=== PATIENT | male | born 1970 | race Caucasian/White ===

== ENCOUNTER 2021-03-22 21:44 | Inpatient (IN) | payer OTHER ==
[~2021-03-22] VITALS: Ht 175.3 cm; Wt 160.7 kg
[2021-03-22 23:12] LABS: BASOPHIL 0.4 % (0-2); EOSINOPHIL 0 % (0-5); HCT 47.4 % (42.0-52.0); HGB 15.5 g/dl (13.2-18.0); LYMPHOCYTE 9.8 % (15-48); MCH 27.6 pg (25.0-31.0); MCHC 32.7 g/dL (32.0-36.0); MCV 84.3 fL (78.0-100.0); MONOCYTE 7.5 % (0-12); MPV 11.6 fL (6.0-9.5); NEUTROPHIL 81.5 % (41-80); NRBC 0; PLT 109 K/uL (150-400); RBC 5.62 M/uL (4.70-6.00); RDW 13.9 % (11.5-14.0); WBC 5.2 K/uL (4.0-10.5)
[2021-03-22 23:34] LABS: ALBUMIN 2.8 g/dL (3.4-5.0); BILIRUBIN - TOTAL 0.3 mg/dL (0.2-1.0); BUN/CREAT RATIO (CALC) 22.1 RATIO; CREATININE 1.22 mg/dL (0.67-1.17); GLOBULIN (CALCULATION) 4.2 g/dL; POTASSIUM 4.4 mmol/L (3.5-5.1)
[2021-03-23 00:59] LABS: BILIRUBIN NEGATIVE (NEGATIVE); BLOOD 2+ Ery/uL (NEGATIVE); CLARITY CLEAR (CLEAR); COLOR YELLOW (YELLOW); GLUCOSE (U) 3+ mg/dL (NORMAL); LEUKOCYTES NEGATIVE Leu/uL (NEGATIVE); NITRITE NEGATIVE (NEGATIVE); PROTEIN 2+ mg/dL (NEGATIVE); SPECIFIC GRAVITY >=1.030 (1.001-1.030); UROBILINOGEN 0.2 mg/dL (0.2-1.0); pH 5.5 (5.0-9.0)
[2021-03-23 01:07] LABS: BACTERIA 1+
[2021-03-23 01:08] LABS: EPITHELIAL CASTS TRACE; MUCOUS TRACE
[2021-03-23] MEDS ORDERED: GLYBURIDE 5MG TA5 MG PO (03:49)
[2021-03-23] MEDS ORDERED: JARDIANCE10 MG PO (03:50)
[2021-03-23] MEDS ORDERED: JANUVIA 100MG100 MG PO (03:50)
[2021-03-23] MEDS ORDERED: LISINOPRIL2.5 MG PO (03:51)
[2021-03-23] MEDS ORDERED: LASIX20 MG PO (03:54)
[2021-03-23] MEDS ORDERED: FARXIGA5 MG PO (03:54)
[2021-03-23] MEDS ORDERED: STEGLATRO15 MG PO (03:55)
[2021-03-23 07:25] LABS: BASOPHIL 0.6 % (0-2); EOSINOPHIL 0 % (0-5); HCT 43.6 % (42.0-52.0); LYMPHOCYTE 8.4 % (15-48); MCH 27.4 pg (25.0-31.0); MCHC 32.1 g/dL (32.0-36.0); MCV 85.3 fL (78.0-100.0); MONOCYTE 5.9 % (0-12); MPV 12.4 fL (6.0-9.5); NEUTROPHIL 83.8 % (41-80); NRBC 0; RBC 5.11 M/uL (4.70-6.00); RDW 13.7 % (11.5-14.0); WBC 3.2 K/uL (4.0-10.5)
[2021-03-23 07:30] LABS: BUN/CREAT RATIO (CALC) 25.7 RATIO; CREATININE 1.09 mg/dL (0.67-1.17); POTASSIUM 4.9 mmol/L (3.5-5.1)
[2021-03-23 07:57] LABS: PLT 87 K/uL (150-400)
[2021-03-24 06:34] LABS: BASOPHIL 0.3 % (0-2); EOSINOPHIL 0 % (0-5); HCT 43.5 % (42.0-52.0); LYMPHOCYTE 9.7 % (15-48); MCHC 32.2 g/dL (32.0-36.0); MCV 83.8 fL (78.0-100.0); MPV 11.9 fL (6.0-9.5); NEUTROPHIL 78.5 % (41-80); NRBC 0; PLT 102 K/uL (150-400); RBC 5.19 M/uL (4.70-6.00); RDW 13.8 % (11.5-14.0); WBC 3.3 K/uL (4.0-10.5)
[2021-03-24 07:04] LABS: ALBUMIN 2.4 g/dL (3.4-5.0); BILIRUBIN - TOTAL 0.2 mg/dL (0.2-1.0); CREATININE 0.97 mg/dL (0.67-1.17); GLOBULIN (CALCULATION) 3.6 g/dL; POTASSIUM 4.8 mmol/L (3.5-5.1)
[2021-03-25 06:42] LABS: BASOPHIL 0.2 % (0-2); EOSINOPHIL 0 % (0-5); HCT 44.2 % (42.0-52.0); HGB 14.2 g/dl (13.2-18.0); LYMPHOCYTE 7.1 % (15-48); MCH 27.2 pg (25.0-31.0); MCHC 32.1 g/dL (32.0-36.0); MCV 84.7 fL (78.0-100.0); MONOCYTE 10.8 % (0-12); NRBC 0; PLT 132 K/uL (150-400); RBC 5.22 M/uL (4.70-6.00); WBC 5.4 K/uL (4.0-10.5)
[2021-03-25 07:12] LABS: ALBUMIN 2.4 g/dL (3.4-5.0); BILIRUBIN - TOTAL 0.3 mg/dL (0.2-1.0); BUN/CREAT RATIO (CALC) 30.6 RATIO; CREATININE 1.11 mg/dL (0.67-1.17); GLOBULIN (CALCULATION) 3.8 g/dL; POTASSIUM 5.1 mmol/L (3.5-5.1); TOTAL PROTEIN 6.2 g/dL (6.4-8.2)
[2021-03-26 06:17] LABS: BASOPHIL 0.2 % (0-2); EOSINOPHIL 0 % (0-5); HCT 45.4 % (42.0-52.0); HGB 14.5 g/dl (13.2-18.0); LYMPHOCYTE 12.1 % (15-48); MCH 26.9 pg (25.0-31.0); MCHC 31.9 g/dL (32.0-36.0); MCV 84.1 fL (78.0-100.0); MONOCYTE 9.3 % (0-12); MPV 11.3 fL (6.0-9.5); NEUTROPHIL 77.6 % (41-80); NRBC 0; PLT 148 K/uL (150-400); RDW 14.2 % (11.5-14.0); WBC 5.9 K/uL (4.0-10.5)
[2021-03-26 06:32] LABS: ALBUMIN 2.3 g/dL (3.4-5.0); BILIRUBIN - TOTAL 0.3 mg/dL (0.2-1.0); BUN/CREAT RATIO (CALC) 25.2 RATIO; CREATININE 1.03 mg/dL (0.67-1.17); GLOBULIN (CALCULATION) 3.7 g/dL; POTASSIUM 4.2 mmol/L (3.5-5.1)
--- NOTE | 2021-03-26 11:48 | NUR ---
03/26/21 Will monitor for home 02 needs.
[2021-03-27 04:11] LABS: BASOPHIL 0.2 % (0-2); EOSINOPHIL 0 % (0-5); HCT 46.8 % (42.0-52.0); HGB 14.7 g/dl (13.2-18.0); LYMPHOCYTE 5.1 % (15-48); MCH 26.7 pg (25.0-31.0); MCHC 31.4 g/dL (32.0-36.0); MCV 85.1 fL (78.0-100.0); MONOCYTE 6.2 % (0-12); MPV 11.2 fL (6.0-9.5); NEUTROPHIL 86.9 % (41-80); NRBC 0; PLT 142 K/uL (150-400); RDW 14.1 % (11.5-14.0); WBC 5.1 K/uL (4.0-10.5)
[2021-03-27 05:07] LABS: ALBUMIN 2.3 g/dL (3.4-5.0); BILIRUBIN - TOTAL 0.4 mg/dL (0.2-1.0); BUN/CREAT RATIO (CALC) 28.7 RATIO; CREATININE 0.87 mg/dL (0.67-1.17); POTASSIUM 4.8 mmol/L (3.5-5.1); TOTAL PROTEIN 6.3 g/dL (6.4-8.2)
[2021-03-28 04:17] LABS: BASOPHIL 0.4 % (0-2); EOSINOPHIL 0 % (0-5); HGB 14.8 g/dl (13.2-18.0); LYMPHOCYTE 3.9 % (15-48); MCH 26.8 pg (25.0-31.0); MCHC 31.5 g/dL (32.0-36.0); MCV 85.1 fL (78.0-100.0); MONOCYTE 6.2 % (0-12); MPV 10.8 fL (6.0-9.5); NEUTROPHIL 86.7 % (41-80); NRBC 0; PLT 192 K/uL (150-400); RBC 5.52 M/uL (4.70-6.00); RDW 14.4 % (11.5-14.0); WBC 7.5 K/uL (4.0-10.5)
[2021-03-28 04:59] LABS: ALBUMIN 2.2 g/dL (3.4-5.0); BILIRUBIN - TOTAL 0.4 mg/dL (0.2-1.0); CREATININE 0.93 mg/dL (0.67-1.17); GLOBULIN (CALCULATION) 4.1 g/dL; MAGNESIUM 2.6 mg/dL (1.8-2.4); PHOSPHORUS 3.1 mg/dL (2.6-4.7); TOTAL PROTEIN 6.3 g/dL (6.4-8.2)
[2021-03-29 06:02] LABS: BASOPHIL 0.5 % (0-2); EOSINOPHIL 0 % (0-5); HGB 14.7 g/dl (13.2-18.0); LYMPHOCYTE 4.2 % (15-48); MCV 84.4 fL (78.0-100.0); MONOCYTE 6.3 % (0-12); MPV 11.3 fL (6.0-9.5); NEUTROPHIL 84.4 % (41-80); NRBC 0; PLT 258 K/uL (150-400); RBC 5.45 M/uL (4.70-6.00); RDW 14.4 % (11.5-14.0); WBC 7.9 K/uL (4.0-10.5)
[2021-03-29 06:44] LABS: ALBUMIN 2.2 g/dL (3.4-5.0); BILIRUBIN - TOTAL 0.4 mg/dL (0.2-1.0); BUN/CREAT RATIO (CALC) 27.5 RATIO; CREATININE 1.02 mg/dL (0.67-1.17); GLOBULIN (CALCULATION) 3.6 g/dL; POTASSIUM 4.8 mmol/L (3.5-5.1); TOTAL PROTEIN 5.8 g/dL (6.4-8.2)
[2021-03-30 06:15] LABS: BASOPHIL 0.8 % (0-2); EOSINOPHIL 0 % (0-5); HCT 49.5 % (42.0-52.0); HGB 14.8 g/dl (13.2-18.0); LYMPHOCYTE 7.2 % (15-48); MCH 26.8 pg (25.0-31.0); MCHC 29.9 g/dL (32.0-36.0); MONOCYTE 7.6 % (0-12); MPV 10.7 fL (6.0-9.5); NEUTROPHIL 78.9 % (41-80); NRBC 0; PLT 251 K/uL (150-400); RBC 5.53 M/uL (4.70-6.00); RDW 14.5 % (11.5-14.0); WBC 9.6 K/uL (4.0-10.5)
[2021-03-30 06:20] LABS: MCV 89.5 fL (78.0-100.0)
[2021-03-30 06:48] LABS: ALBUMIN 2.1 g/dL (3.4-5.0); BILIRUBIN - TOTAL 0.4 mg/dL (0.2-1.0); BUN/CREAT RATIO (CALC) 28.2 RATIO; CREATININE 1.1 mg/dL (0.67-1.17); GLOBULIN (CALCULATION) 3.7 g/dL; TOTAL PROTEIN 5.8 g/dL (6.4-8.2)
[2021-03-30 09:17] LABS: RETICULOCYTE COUNT 1.3 % (1.0-2.0)
[2021-03-30 09:38] LABS: IRON % SATURATION 21.2 %SAT (20-50)
[2021-03-30 09:55] LABS: FOLIC ACID (SERUM) 13.8 ng/mL (8.6-58.9)
[2021-03-31 06:28] LABS: BASOPHIL 0.6 % (0-2); EOSINOPHIL 0 % (0-5); HCT 47.1 % (42.0-52.0); HGB 14.7 g/dl (13.2-18.0); LYMPHOCYTE 4.9 % (15-48); MCH 26.5 pg (25.0-31.0); MCHC 31.2 g/dL (32.0-36.0); MONOCYTE 4.4 % (0-12); MPV 11.1 fL (6.0-9.5); NEUTROPHIL 83.2 % (41-80); NRBC 0; PLT 247 K/uL (150-400); RBC 5.54 M/uL (4.70-6.00); RDW 14.2 % (11.5-14.0); WBC 8.2 K/uL (4.0-10.5)
[2021-03-31 07:05] LABS: ALBUMIN 2.1 g/dL (3.4-5.0); BILIRUBIN - TOTAL 0.5 mg/dL (0.2-1.0); BUN/CREAT RATIO (CALC) 26.7 RATIO; CREATININE 0.86 mg/dL (0.67-1.17); MAGNESIUM 2.6 mg/dL (1.8-2.4); POTASSIUM 4.6 mmol/L (3.5-5.1); TOTAL PROTEIN 6.1 g/dL (6.4-8.2)
[2021-04-01 06:48] LABS: BASOPHIL 0.7 % (0-2); EOSINOPHIL 0.1 % (0-5); HGB 15.4 g/dl (13.2-18.0); MCH 26.8 pg (25.0-31.0); MCHC 31.4 g/dL (32.0-36.0); MCV 85.2 fL (78.0-100.0); MONOCYTE 2.8 % (0-12); MPV 10.9 fL (6.0-9.5); NEUTROPHIL 87.2 % (41-80); NRBC 0; PLT 253 K/uL (150-400); RBC 5.75 M/uL (4.70-6.00); RDW 14.2 % (11.5-14.0)
[2021-04-01 06:49] LABS: WBC 12.2 K/uL (4.0-10.5)
[2021-04-01 07:11] LABS: BUN/CREAT RATIO (CALC) 23.4 RATIO; CREATININE 1.07 mg/dL (0.67-1.17); MAGNESIUM 2.7 mg/dL (1.8-2.4); POTASSIUM 5.1 mmol/L (3.5-5.1)
[2021-04-03 06:05] LABS: BASOPHIL 0.2 % (0-2); EOSINOPHIL 0 % (0-5); HCT 47.8 % (42.0-52.0); HGB 15.5 g/dl (13.2-18.0); MCH 27.3 pg (25.0-31.0); MCHC 32.4 g/dL (32.0-36.0); MCV 84.2 fL (78.0-100.0); MONOCYTE 2.2 % (0-12); MPV 11.5 fL (6.0-9.5); NRBC 0; PLT 306 K/uL (150-400); RBC 5.68 M/uL (4.70-6.00); WBC 18.9 K/uL (4.0-10.5)
[2021-04-03 06:07] LABS: NEUTROPHIL 91.7 % (41-80)
[2021-04-03 06:25] LABS: BUN/CREAT RATIO (CALC) 34.4 RATIO; CREATININE 0.9 mg/dL (0.67-1.17); MAGNESIUM 2.7 mg/dL (1.8-2.4); POTASSIUM 4.7 mmol/L (3.5-5.1)
--- NOTE | 2021-04-04 13:26 | NUR ---
AWARE. PT IS NOT TOLERATING REMOVING BIPAP MASK PLACED AT 0745. WHEN REMOVED WITHIN SECONDS PT SATS DROP FROM 91% TO 74%. AM MEDS WERE NOT GIVEN AND PT DID NOT EAT FOR THIS REASON. RESTRAINTS WERE REMOVED AT 1230. WILL REMAIN REMOVED UNLESS PT CONTINUES TO REMOVE BIPAP MASK ANS OXYGEN LIKE REPORTED IN REPORT FROM ECOTHERAPIST.
[2021-04-05 06:26] LABS: BASOPHIL 0.2 % (0-2); EOSINOPHIL 0 % (0-5); HCT 49.5 % (42.0-52.0); HGB 15.2 g/dl (13.2-18.0); MCHC 30.7 g/dL (32.0-36.0); MCV 87.8 fL (78.0-100.0); MONOCYTE 1.2 % (0-12); MPV 11.5 fL (6.0-9.5); NEUTROPHIL 92.9 % (41-80); NRBC 0; PLT 271 K/uL (150-400); RBC 5.64 M/uL (4.70-6.00); RDW 14.5 % (11.5-14.0); WBC 12.8 K/uL (4.0-10.5)
[2021-04-05 06:48] LABS: ALBUMIN 1.9 g/dL (3.4-5.0); BILIRUBIN - TOTAL 0.6 mg/dL (0.2-1.0); BUN/CREAT RATIO (CALC) 31.9 RATIO; CREATININE 1.19 mg/dL (0.67-1.17); GLOBULIN (CALCULATION) 3.9 g/dL; MAGNESIUM 2.9 mg/dL (1.8-2.4); POTASSIUM 5.2 mmol/L (3.5-5.1); TOTAL PROTEIN 5.8 g/dL (6.4-8.2)
--- NOTE | 2021-04-05 15:14 | NUR ---
04/05/21 Mr. Agarwal lives alone. He was independent in the home and community prior to admission. - Mr. Agarwal chose [facility] for any 02 needs following discharge. - Rylee Quintanilla, girlfriend, , was informed that Mr. Agarwal may have one support person to visit.
[2021-04-06 06:14] LABS: BASOPHIL 0.2 % (0-2); EOSINOPHIL 0.2 % (0-5); HGB 13.7 g/dl (13.2-18.0); LYMPHOCYTE 3.8 % (15-48); MCH 27.2 pg (25.0-31.0); MCHC 31.9 g/dL (32.0-36.0); MCV 85.3 fL (78.0-100.0); MONOCYTE 2.6 % (0-12); MPV 11.1 fL (6.0-9.5); NRBC 0; PLT 237 K/uL (150-400); RBC 5.04 M/uL (4.70-6.00); RDW 14.4 % (11.5-14.0); WBC 10.3 K/uL (4.0-10.5)
[2021-04-06 08:11] LABS: ALBUMIN 1.7 g/dL (3.4-5.0); BILIRUBIN - TOTAL 0.4 mg/dL (0.2-1.0); BUN/CREAT RATIO (CALC) 36.3 RATIO; CREATININE 1.02 mg/dL (0.67-1.17); GLOBULIN (CALCULATION) 4.7 g/dL; MAGNESIUM 2.8 mg/dL (1.8-2.4); POTASSIUM 4.5 mmol/L (3.5-5.1); TOTAL PROTEIN 6.4 g/dL (6.4-8.2)
--- NOTE | 2021-04-06 16:27 | NUR ---
PATIENT CONTINUED TO BECOME MORE SOA AND STRUGGLING TO MAINTAIN O2 SAT, THE DECISION WAS MADE INCLUDING THE PATIENT FOR INTUBATION, V/S PRIOR TO INTUBATION WAS: BP 130/67, HR 103, 83% VIA MANUAL BAG MASK. AT 1417 INTUBATION MEDICATIONS WERE GIVEN VIA MD USING DIPROVAN AND SUCC. 1418 INTUBATION WAS COMPLETED, A SIZE 8 ETT WAS USED AND PLACED AT 20 AT THE GUM. 1420 V/S WERE FOLLOWS: BP 134/87, HR 93, 92% VIA BAG OF ETT. DIPROVAN WAS STARTED AT 1429 AT A RATE OF 42 ML/HR OR 50 MCG/MIN. NEW IV'S WERE PLACED WITH A #20 IN THE RIGHT HAND AND A #20 IN THE LEFT FOREARM. AT 1437 A BOLUS OF 2.5MG OF VERSED AND 50MCG OF FENTANYL WAS GIVEN. AT 1500 A REPEAT OF 2.5MG OF VERSED AND 50MCG OF FENTANYL WAS GIVEN FOR PATIENT COMFORT. AT 1530 THE PATIENT WAS ON THE FOLLOWING DRIPS: LEVOPHED AT 10MCG/MIN (37.5ML/HR), FENTANYL AT 300MCG/HR (30ML/HR), AND DIPROVAN AT 50MCG/MIN (42ML/HR). PT RESTING COMFORTABLE AT THIS TIME. AT 1555 A RIGHT IJ CENTRAL LINE WAS PLACED PER MD AND PLACED AT 15CM. PT'S CURRENT V/S: BP 112/53, HR 61, WITH A SAT OF 93% ON THE VENTILATOR. WILL CONTINUE TO MONITOR PT
[2021-04-07 05:31] LABS: BASOPHIL 0.1 % (0-2); EOSINOPHIL 0 % (0-5); HCT 45.2 % (42.0-52.0); HGB 13.3 g/dl (13.2-18.0); LYMPHOCYTE 3.3 % (15-48); MCHC 29.4 g/dL (32.0-36.0); MONOCYTE 4.4 % (0-12); MPV 10.6 fL (6.0-9.5); NEUTROPHIL 90.8 % (41-80); NRBC 0; PLT 389 K/uL (150-400); RBC 4.93 M/uL (4.70-6.00); RDW 14.4 % (11.5-14.0)
[2021-04-07 05:41] LABS: MCV 91.7 fL (78.0-100.0); WBC 18.4 K/uL (4.0-10.5)
[2021-04-07 05:53] LABS: ALBUMIN 1.7 g/dL (3.4-5.0); BILIRUBIN - TOTAL 0.3 mg/dL (0.2-1.0); BUN/CREAT RATIO (CALC) 24.8 RATIO; C-REACTIVE PROTEIN 9.9 mg/dL (<=0.90); CREATININE 1.65 mg/dL (0.67-1.17); GLOBULIN (CALCULATION) 4.6 g/dL; MAGNESIUM 2.9 mg/dL (1.8-2.4); PHOSPHORUS 8.6 mg/dL (2.6-4.7); POTASSIUM 5.8 mmol/L (3.5-5.1); TOTAL PROTEIN 6.3 g/dL (6.4-8.2)
[2021-04-08 06:19] LABS: BASOPHIL 0.1 % (0-2); EOSINOPHIL 1.2 % (0-5); HCT 42.7 % (42.0-52.0); HGB 12.6 g/dl (13.2-18.0); LYMPHOCYTE 4.6 % (15-48); MCH 26.8 pg (25.0-31.0); MCHC 29.5 g/dL (32.0-36.0); MCV 90.9 fL (78.0-100.0); MONOCYTE 3.4 % (0-12); MPV 10.4 fL (6.0-9.5); NEUTROPHIL 89.8 % (41-80); NRBC 0; PLT 208 K/uL (150-400); RDW 14.5 % (11.5-14.0); WBC 9.1 K/uL (4.0-10.5)
[2021-04-08 07:04] LABS: ALBUMIN 1.7 g/dL (3.4-5.0); BILIRUBIN - TOTAL 0.2 mg/dL (0.2-1.0); BUN/CREAT RATIO (CALC) 20.5 RATIO; CREATININE 2.34 mg/dL (0.67-1.17); GLOBULIN (CALCULATION) 4.1 g/dL; MAGNESIUM 2.7 mg/dL (1.8-2.4); PHOSPHORUS 6.7 mg/dL (2.6-4.7); POTASSIUM 4.8 mmol/L (3.5-5.1); TOTAL PROTEIN 5.8 g/dL (6.4-8.2)
--- NOTE | 2021-04-08 11:24 | NUR ---
PT UNPRONED. TOLERATED WELL. VSS THOUGHOUT WHOLE PROCESS. VEC WEANED OFF. SEDATION TURNED DOWN WHILE SUPINE. TOLERATED SEDATION VACATION WELL.
[2021-04-08 12:42] LABS: BILIRUBIN NEGATIVE (NEGATIVE); BLOOD 1+ Ery/uL (NEGATIVE); COLOR YELLOW (YELLOW); GLUCOSE (U) NORMAL (NORMAL); LEUKOCYTES NEGATIVE Leu/uL (NEGATIVE); NITRITE NEGATIVE (NEGATIVE); PROTEIN TRACE (LOW) mg/dL (NEGATIVE); SPECIFIC GRAVITY 1.025 (1.001-1.030); UROBILINOGEN 0.2 mg/dL (0.2-1.0); pH 5.5 (5.0-9.0)
[2021-04-08 13:12] LABS: CLARITY CLOUDY (CLEAR)
[2021-04-08 13:13] LABS: AMORPHOUS URATES CRYSTALS MODERATE; BACTERIA TRACE; URINARY WBC RARE
[2021-04-08 13:15] LABS: GRANULAR CASTS MODERATE; URIC ACID CRYSTALS MODERATE
[2021-04-08 13:16] LABS: SQUAMOUS EPITHELIAL CELLS RARE; URINARY RBC 20-50
[2021-04-08 15:01] LABS: BUN/CREAT RATIO (CALC) 19.6 RATIO; CREATININE 2.65 mg/dL (0.67-1.17); POTASSIUM 4.6 mmol/L (3.5-5.1)
--- NOTE | 2021-04-08 16:00 | NUR ---
PT PRONED AT THIS TIME. VEC STARTED BACK. SEDATION INCREASED. PROP MAXED AT 50MCG. FENTANYL MAXED AT 300MCG. VSS WITH THESE SETTINGS. VEC AT 0.6MCG/KG/MIN. PT TOLERATING PRONE POSITION WELL. LEVO WEANED TO 2MCG THROUGHOUT THE DAY. MAP 72 AT THIS TIME.
[2021-04-09 06:09] LABS: BASOPHIL 0.2 % (0-2); EOSINOPHIL 0.4 % (0-5); LYMPHOCYTE 3.2 % (15-48); MCH 26.8 pg (25.0-31.0); MCV 89.5 fL (78.0-100.0); MONOCYTE 2.5 % (0-12); MPV 10.1 fL (6.0-9.5); NRBC 0; PLT 189 K/uL (150-400); RBC 4.47 M/uL (4.70-6.00); RDW 14.5 % (11.5-14.0); WBC 9.5 K/uL (4.0-10.5)
[2021-04-09 07:38] LABS: ALBUMIN 1.6 g/dL (3.4-5.0); ALKALINE PHOSHATASE 96 U/L (46-116); ALT 48 U/L (16-63); AST 32 U/L (15-37); BILIRUBIN - TOTAL 0.3 mg/dL (0.2-1.0); BUN 64 mg/dL (7-18); BUN/CREAT RATIO (CALC) 17.3 RATIO; C-REACTIVE PROTEIN >18.00 mg/dL (<=0.90); CHLORIDE 101 mmol/L (98-107); CO2 (BICARBONATE) 17 mmol/L (21-32); CREATININE 3.71 mg/dL (0.67-1.17); GLOBULIN (CALCULATION) 3.2 g/dL; GLUCOSE 166 mg/dL (74-106); MAGNESIUM 2.9 mg/dL (1.8-2.4); PHOSPHORUS 8.3 mg/dL (2.6-4.7); POTASSIUM 5.1 mmol/L (3.5-5.1); TOTAL PROTEIN 4.8 g/dL (6.4-8.2)
--- NOTE | 2021-04-09 15:06 | NUR ---
STARTED TRANSFER PROCESS TO [facility], WE HAVE AN ACCEPTING MD,BUT NO BEDS AVAILABLE AT THIS TIME.PT WILL NEED DIALYSIS PER INCREASING BUN/CREATININE AND DECREASED URINE OUTPUT.
--- NOTE | 2021-04-09 15:10 | NUR ---
MD HARMON TALKED TO BRIELLE ABOUT HIS CONDITION AND TRANSFER PROCESS. WILL CONTINUE TO UPDATE HER CHANGES OCCUR.
[2021-04-09 15:35] LABS: CREATININE 4.07 mg/dL (0.67-1.17); POTASSIUM 5.5 mmol/L (3.5-5.1)
[2021-04-10 05:33] LABS: BASOPHIL 0.2 % (0-2); EOSINOPHIL 0.1 % (0-5); HCT 39.6 % (42.0-52.0); LYMPHOCYTE 2.6 % (15-48); MCH 27.3 pg (25.0-31.0); MCHC 30.3 g/dL (32.0-36.0); MONOCYTE 2.7 % (0-12); MPV 10.2 fL (6.0-9.5); NRBC 0; PLT 175 K/uL (150-400); RDW 14.7 % (11.5-14.0); WBC 13.9 K/uL (4.0-10.5)
[2021-04-10 05:37] LABS: NEUTROPHIL 92.1 % (41-80)
[2021-04-10 06:01] LABS: ALBUMIN 2.5 g/dL (3.4-5.0); BILIRUBIN - TOTAL 0.5 mg/dL (0.2-1.0); CREATININE 5.16 mg/dL (0.67-1.17); GLOBULIN (CALCULATION) 3.8 g/dL; PHOSPHORUS 9.9 mg/dL (2.6-4.7); POTASSIUM 5.5 mmol/L (3.5-5.1); TOTAL PROTEIN 6.3 g/dL (6.4-8.2)
--- NOTE | 2021-04-10 13:10 | NUR ---
0871- [facility] RADIOLOGIST CALLED TO REPORT PLACEMENT OF ET TUBE UP HIGH, NEEDS TO BE ADVANCED 4CM. DR. Flowers SAT 86% TANNER RT CALLED TO BEDSIDE TO ADVANCE ET 4CM. 0840 DR. ESCALANTE AT PT BEDSIDE, DISCUSSED ET TUBE LEAK, REPLACEMENT OF ET TUBE NECESSARY. ET TUBE REPLACE BY USE OF BOOGIE WITH SIZE 8 ET TUBE AT 24 AT THE LIP WITHOUT DIFFICULTY.
[2021-04-10 15:09] LABS: CREATININE 5.45 mg/dL (0.67-1.17); POTASSIUM 5.8 mmol/L (3.5-5.1)
--- NOTE | 2021-04-10 18:44 | NUR ---
0820-PER KRISTIN EDGE DO SEDATION VACATION TODAY. CONTINUE WITH VEC. TO MAINTAIN SATS
[2021-04-11 05:42] LABS: BASOPHIL 0.1 % (0-2); HCT 36.3 % (42.0-52.0); HGB 11.3 g/dl (13.2-18.0); LYMPHOCYTE 2.1 % (15-48); MCH 27.3 pg (25.0-31.0); MCHC 31.1 g/dL (32.0-36.0); MCV 87.7 fL (78.0-100.0); MONOCYTE 2.5 % (0-12); MPV 10.3 fL (6.0-9.5); NEUTROPHIL 90.8 % (41-80); NRBC 0; PLT 126 K/uL (150-400); RBC 4.14 M/uL (4.70-6.00); RDW 15.1 % (11.5-14.0); WBC 8.4 K/uL (4.0-10.5)
[2021-04-11 06:29] LABS: ALBUMIN 2.8 g/dL (3.4-5.0); BILIRUBIN - TOTAL 0.6 mg/dL (0.2-1.0); C-REACTIVE PROTEIN 13.5 mg/dL (<=0.90); CREATININE 6.02 mg/dL (0.67-1.17); GLOBULIN (CALCULATION) 3.2 g/dL; POTASSIUM 5.2 mmol/L (3.5-5.1)
--- NOTE | 2021-04-11 11:41 | NUR ---
1130 WENT IN AND TURNED PT TO HIS LEFT AND SATS DROPPED TO 60/70s. STARTED TO BAG PT TO GET SAT UP BUT COULD ONLY GET TO 85%,THEN PLACED BACK ON THE VENTILATOR R30,T 550,FIO2 100%,PEEP 14, MD OLIVAS AND RT CALLED, RT CONTINUED TO BAG THE PT DID GET SAT TO 85%. SAID IT WAS OK TO INCREASE PEEP TO 15. CALLED HIS SISTER TARIQ TO TALK ABOUT CODE STATUS SHE SAID SHE NEEDED TO TALK TO FAMILY AND WOULD GET BACK TO HIM/US AFTER MULTIPLE TIMES OF BAGGING THE PT SATS STILL ONLY 80% ON THE VENT, FIO2 100% PEEP 15.
[2021-04-11 14:41] LABS: CREATININE 6.27 mg/dL (0.67-1.17); POTASSIUM 5.3 mmol/L (3.5-5.1)
--- NOTE | 2021-04-11 19:35 | NUR ---
DEISY LINDA, TALKED WITH FAMILY.THEY DECIDED TO WITHDRAWL CARE. 1725 2 RTS EXTUBATED PT. PT FAMILY IS AT BEDSIDE, PT AT 1734 ZOOM MEETING ALSO PROVIDED FOR OTHER FAMILY THAT COULD NOT TELL HIM GOOD BYE IN PERSON BEFORE HE WAS EXTUBATED
== END 2021-04-11 19:10 | disposition expired | DRG 871 ==
LOC: FER 21:44 → FMS 03-23 00:59 → FICU 03-27 00:17 → FTCU 03-27 14:51 → FICU 03-29 10:53 → FTCU 03-31 19:23 → FICU 04-06 15:04
PROVIDERS: Family Medicine; Internal Medicine; Nurse Practitioner; ADMIT Internal Medicine
PROC: XW033E5 Introduction of Remdesivir Anti-infective into Peripheral Vein, Percutaneous Approach, New Technology Group 5 (ICD-10-PCS; 2021-03-23)
PROC: 8E0ZXY6 Isolation (ICD-10-PCS; 2021-03-23)
PROC: XW0DXM6 Introduction of Baricitinib into Mouth and Pharynx, External Approach, New Technology Group 6 (ICD-10-PCS; 2021-03-27)
PROC: 5A0945A Assistance with Respiratory Ventilation, 24-96 Consecutive Hours, High Flow/Velocity Cannula (ICD-10-PCS; principal; 2021-04-04)
PROC: 5A1945Z Respiratory Ventilation, 24-96 Consecutive Hours (ICD-10-PCS; 2021-04-06)
PROC: 0BH17EZ Insertion of Endotracheal Airway into Trachea, Via Natural or Artificial Opening (ICD-10-PCS; 2021-04-06)
PROC: 05HM33Z Insertion of Infusion Device into Right Internal Jugular Vein, Percutaneous Approach (ICD-10-PCS; 2021-04-06)
PROC: 3E043XZ Introduction of Vasopressor into Central Vein, Percutaneous Approach (ICD-10-PCS; 2021-04-06)
DX: A41.89 Other specified sepsis (principal); U07.1 COVID-19; J96.01 Acute respiratory failure with hypoxia; J12.82 Pneumonia due to coronavirus disease 2019; A00-B99 Certain infectious and parasitic diseases; J15.9 Unspecified bacterial pneumonia; N17.0 Acute kidney failure with tubular necrosis; E87.2 Acidosis; I96 Gangrene, not elsewhere classified; Z68.42 Body mass index [BMI] 45.0-49.9, adult; E87.1 Hypo-osmolality and hyponatremia; Z66 Do not resuscitate; Z51.5 Encounter for palliative care; R65.20 Severe sepsis without septic shock; D64.9 Anemia, unspecified; K59.03 Drug induced constipation; I95.9 Hypotension, unspecified; E87.5 Hyperkalemia; D69.59 Other secondary thrombocytopenia; E87.70 Fluid overload, unspecified; R62.7 Adult failure to thrive; E11.65 Type 2 diabetes mellitus with hyperglycemia; E66.01 Morbid (severe) obesity due to excess calories; Z90.49 Acquired absence of other specified parts of digestive tract; Z98.890 Other specified postprocedural states; Z87.891 Personal history of nicotine dependence; Z79.84 Long term (current) use of oral hypoglycemic drugs; Z79.899 Other long term (current) drug therapy; Z78.1 Physical restraint status
CPT/HCPCS: 31500; 36415; 36600; 71045; 71275; 74018; 80048; 80053; 80061; 80202; 81001; 82550; 82607; 82728; 82746; 82803; 82962; 83036; 83540; 83550; 83605; 83735; 83880; 84100; 84145; 84484; 85025; 85379; 86140; 87040; 87088; 93005; 94002; 94010; 94640; 94660; 94667; 94668; C9399; J0456; J0692; J1100; J1650; J1815; J2060; J2250; J2704; J3010; J3360; J3370; J3490; J7030; J7040; J7050; J7070; J8540; P9047; Q9967; U0002